=== PATIENT | female | born 1950 | race Caucasian/White ===

== ENCOUNTER → 2017-06-09 | Outpatient (CLI) | payer MEDICARE, OTHER ==
--- NOTE | 2017-06-10 08:33 | MM ---
Reason for exam: screening (asymptomatic). Last mammogram was performed 1 year and 4 months ago. History: Patient is postmenopausal and is nulliparous. Family history of breast cancer in aunt at age 60. Took estrogen for 9 months beginning at age 54. Took progesterone for 9 months beginning at age 54. Physical Findings: A clinical breast exam by your physician is recommended on an annual basis and results should be correlated with mammographic findings. MG 3D Screening Mammo W/Cad Bilateral CC and MLO view(s) were taken. Prior study comparison: February 01, 2016, bilateral MG 3d screening mammo w/cad. January 22, 2015, bilateral MG 3d screening mammo w/cad. The breast tissue is heterogeneously dense. This may lower the sensitivity of mammography. Benign calcifications bilaterally. No significant changes when compared with prior studies. ASSESSMENT: Benign, BI-RAD 2 RECOMMENDATION: Routine screening mammogram of both breasts in 1 year.
== END | disposition home or self-care (01) ==
LOC: RADMAMWWP 13:44
PROVIDERS: ATTEND Family Medicine
DX: Z12.31 Encounter for screening mammogram for malignant neoplasm of breast (principal)
CPT/HCPCS: 77063; 77067

== ENCOUNTER → 2018-09-02 | Outpatient (CLI) | payer MEDICARE, OTHER ==
--- NOTE | 2018-09-03 10:54 | MM ---
Reason for exam: screening (asymptomatic). Last mammogram was performed 1 year and 3 months ago. History: Patient is postmenopausal and is nulliparous. Family history of breast cancer in aunt at age 60. Took estrogen for 9 months beginning at age 54. Took progesterone for 9 months beginning at age 54. Physical Findings: A clinical breast exam by your physician is recommended on an annual basis and results should be correlated with mammographic findings. MG 3D Screening Mammo W/Cad Bilateral CC and MLO view(s) were taken. Prior study comparison: June 09, 2017, bilateral MG 3d screening mammo w/cad. February 01, 2016, bilateral MG 3d screening mammo w/cad. There are scattered fibroglandular densities. No significant changes when compared with prior studies. ASSESSMENT: Benign, BI-RAD 2 RECOMMENDATION: Routine screening mammogram of both breasts in 1 year.
== END | disposition home or self-care (01) ==
LOC: RADMAMWWP 11:30
PROVIDERS: ATTEND Family Medicine
DX: Z12.31 Encounter for screening mammogram for malignant neoplasm of breast (principal)
CPT/HCPCS: 77063; 77067

== ENCOUNTER 2018-10-01 11:30 | Emergency (ER) | payer MEDICARE, OTHER ==
[2018-10-01 11:40] VITALS: BP 137/76; PULSE 70; RESP 16; TEMP 97.8
[2018-10-01] MEDS ORDERED: SODIUM CHLORIDE 0.9% 1,000 ML IV STA (11:48)
[2018-10-01] MEDS ORDERED: methylPREDNISolone SOD SUCCI 125 MG/2 ML VIAL IV STA (12:21)
[2018-10-01] MEDS ORDERED: FAMOTIDINE 20 MG/2 ML VIAL IV STA (12:21)
[2018-10-01] MEDS ORDERED: diphenhydrAMINE 50 MG/ML 1 ML VIAL IVP STA (12:21)
[2018-10-01 12:30] LABS: Basophils # (A) 0.1 k/uL (0-0.2); Basophils % (A) 1 %; Eosinophils # (A) 0.1 k/uL (0-0.7); Eosinophils % (A) 1 %; HGB 15.1 gm/dL (11.4-16.0); Lymphocytes % (A) 17 %; MCV 96.8 fL (80.0-100.0); Mean Platelet Volume 8.4; Monocytes # (A) 0.5 k/uL (0-1.0); Monocytes % (A) 4 %; Neutrophils # (A) 9.2 k/uL (1.3-7.7); Neutrophils % (A) 77 %; Platelet Count 261 k/uL (150-450); RBC 4.86 m/uL (3.80-5.40); WBC 12.1 k/uL (3.8-10.6)
[2018-10-01 12:40] LABS: ALT 25 U/L (9-52); AST 29 U/L (14-36); African American GFR (CKD) >90 (>60 ml/min/1.73 sqM); Albumin 4.2 g/dL (3.5-5.0); Alkaline Phosphatase 59 U/L (38-126); Anion Gap 8 mmol/L; Blood Urea Nitrogen 12 mg/dL (7-17); Calcium 9.1 mg/dL (8.4-10.2); Carbon Dioxide 28 mmol/L (22-30); Chloride 104 mmol/L (98-107); Glucose 88 mg/dL (74-99); Potassium 4.4 mmol/L (3.5-5.1); Sodium 140 mmol/L (137-145); Total Bilirubin 1.4 mg/dL (0.2-1.3)
--- NOTE | 2018-10-01 13:38 | ED ---
General Adult HPI - General Chief complaint: Abdominal Pain Stated complaint: appedicitis Time Seen by Provider: 10/01/18 11:47 Source: patient, RN notes reviewed, old records reviewed Mode of arrival: ambulatory Limitations: no limitations - History of Present Illness Initial comments: 68-year-old female patient past history significant for hypertension h yperlipidemia presents to ED with abdominal pain. Patient was evaluated by her primary care provider who recommended presented to ED for CAT scan. She reports the pain began this morning at approximately 6 AM, began in her right lower quadrant, patient has generalized abdominal pain did not worsen her left lower quadrant. Denies previous abdominal surgeries. Denies any chest pain or shortness of breath. Reports some nausea without emesis. Systemic: Pt denies fatigue, fever/chills, rash. Pt denies weakness, night sweats, weight loss. Neuro: Pt denies headache, visual disturbances, syncope or pre-syncope. HEENT: Pt denies ocular discharge or irritation, otalgia, rhinorrhea, pharyngitis or notable lymphadenopathy. Cardiopulmonary: Pt denies chest pain, SOB, heart palpitations, dyspnea on exertion. Abdominal/GI: Pt denies /v/d. : Pt denies dysuria, burning w/ urination, frequency/urgency. Denies new onset urinary or bowel incontinence. MSK: Pt denies myalgia, loss of strength or function in extremities. Neuro: Pt denies new onset weakness, paresthesias. - Related Data Allergies Allergy/AdvReac Type Severity Reaction Status Date / Time shellfish derived [Shellfish] Allergy Rash/Hives Verified 10/01/18 11:37 Review of Systems ROS Statement: Those systems with pertinent positive or pertinent negative responses have been documented in the HPI. ROS Other: All systems not noted in ROS Statement are negative. Past Medical History Past Medical History: Hyperlipidemia, Hypertension History of Any Multi-Drug Resistant Organisms: None Reported Past Surgical History: No Surgical Hx Reported Past Psychological History: No Psychological Hx Reported Smoking Status: Never smoker Past Alcohol Use History: Occasional Past Drug Use History: None Reported General Exam - General Exam Comments Initial Comments: Constitutional: NAD, AOX3, Pt has pleasant affect. HEENT: NC/AT, trachea midline, neck supple, no lymphadenopathy. Posterior pharynx non erythematous, without exudates. External ears appear normal, without discharge. Mucous membranes moist. Eyes PERRLA, EOM intact. There is no scleral icterus. No pallor noted. Cardiopulmonary: RRR, no murmurs, rubs or gallops, no JVD noted. Lungs CTAB in anterior and posterior finney. No peripheral edema. Abdominal exam: Abdomen soft and mildly-distended. Abdomen mildly tender to palpation left lower quadrant, no other areas of abdominal tenderness, no guarding or rigidity.. Bowel sounds active in LLQ. No hepatosplenomegaly. No ecchymosis Neuro: CN II-XII grossly intact. No nuchal rigidity. No raccon eyes, no gunter sign, no hemotympanum. No cervical spinal tenderness. MSK: No posterior calf tenderness bilaterally, homans sign negative bilaterally. Posterior tibialis and radial pulse +2 bilaterally. Sensation intact in upper and lower extremities. Full active ROM in upper and lower extremities, 5/5 stregnth. Limitations: no limitations Course Vital Signs 10/01/18 11:37 Temperature 97.8 F Pulse Rate 70 Respiratory 16 Rate Blood Pressure 137/76 O2 Sat by Pulse 99 Oximetry Medical Decision Making - Medical Decision Making 68-year-old female patient past history significant for hypertension hyperlipidemia presents to ED with abdominal pain. Patient was evaluated by her primary care provider who recommended presented to ED for CAT scan. She reports the pain began this morning at approximately 6 AM, began in her right lower quadrant, patient has generalized abdominal pain did not worsen her left lower quadrant. Denies previous abdominal surgeries. Denies any chest pain or shortness of breath. Reports some nausea without emesis. Patient vital signs stable, afebrile. Physical exam displayed: Abdomen soft and mildly-distended. Abdomen mildly tender to palpation left lower quadrant, no other areas of abdominal tenderness, no guarding or rigidity.. Bowel sounds active in LLQ. No hepatosplenomegaly. Laboratory investigations displayed mild leukocytosis, otherwise noncompressive. CT displayed a large cystic structure and middle of abdomen with corresponding mass effect and surrounding structures. Ascites. Case was discussed and pt was examined with both Dr. Bergman as well as Dr. Sam. Patient will be discharged and have close outpatient follow-up on Thursday with Dr. Sam. - Lab Data Result diagrams: 10/01/18 12:10 10/01/18 12:10 Lab Results 08/16/19 08/16/19 08/16/19 Range/Units 12:10 12:10 12:10 WBC 12.1 H (3.8-10.6) k/uL RBC 4.86 (3.80-5.40) m/uL Hgb 15.1 (11.4-16.0) gm/dL Hct 47.0 H (34.0-46.0) % MCV 96.8 (80.0-100.0) fL MCH 31.0 (25.0-35.0) pg MCHC 32.0 (31.0-37.0) g/dL RDW 15.0 (11.5-15.5) % Plt Count 261 (150-450) k/uL Neutrophils % 77 % Lymphocytes % 17 % Monocytes % 4 % Eosinophils % 1 % Basophils % 1 % Neutrophils # 9.2 H (1.3-7.7) k/uL Lymphocytes # 2.0 (1.0-4.8) k/uL Monocytes # 0.5 (0-1.0) k/uL Eosinophils # 0.1 (0-0.7) k/uL Basophils # 0.1 (0-0.2) k/uL Sodium 140 (137-145) mmol/L Potassium 4.4 (3.5-5.1) mmol/L Chloride 104 (98-107) mmol/L Carbon Dioxide 28 (22-30) mmol/L Anion Gap 8 mmol/L BUN 12 (7-17) mg/dL Creatinine 0.62 (0.52-1.04) mg/dL Est GFR (CKD-EPI)AfAm >90 (>60 ml/min/1.73 sqM) Est GFR (CKD-EPI)NonAf >90 (>60 ml/min/1.73 sqM) Glucose 88 (74-99) mg/dL Plasma Lactic Acid [place] 0.9 (0.7-2.0) mmol/L Calcium 9.1 (8.4-10.2) mg/dL Total Bilirubin 1.4 H (0.2-1.3) mg/dL AST 29 (14-36) U/L ALT 25 (9-52) U/L Alkaline Phosphatase 59 (38-126) U/L Total Protein 7.0 (6.3-8.2) g/dL Albumin 4.2 (3.5-5.0) g/dL Lipase 63 (23-300) U/L Urine Color Urine Appearance (Clear) Urine pH (5.0-8.0) Ur Specific [place] (1.001-1.035) Urine Protein (Negative) Urine Glucose (UA) (Negative) Urine Ketones (Negative) Urine Blood (Negative) Urine Nitrite (Negative) Urine Bilirubin (Negative) Urine Urobilinogen (<2.0) mg/dL Ur Leukocyte Esterase (Negative) 10/01/18 Range/Units 14:40 WBC (3.8-10.6) k/uL RBC (3.80-5.40) m/uL Hgb (11.4-16.0) gm/dL Hct (34.0-46.0) % MCV (80.0-100.0) fL MCH (25.0-35.0) pg MCHC (31.0-37.0) g/dL RDW (11.5-15.5) % Plt Count (150-450) k/uL Neutrophils % % Lymphocytes % % Monocytes % % Eosinophils % % Basophils % % Neutrophils # (1.3-7.7) k/uL Lymphocytes # (1.0-4.8) k/uL Monocytes # (0-1.0) k/uL Eosinophils # (0-0.7) k/uL Basophils # (0-0.2) k/uL Sodium (137-145) mmol/L Potassium (3.5-5.1) mmol/L Chloride (98-107) mmol/L Carbon Dioxide (22-30) mmol/L Anion Gap mmol/L BUN (7-17) mg/dL Creatinine (0.52-1.04) mg/dL Est GFR (CKD-EPI)AfAm (>60 ml/min/1.73 sqM) Est GFR (CKD-EPI)NonAf (>60 ml/min/1.73 sqM) Glucose (74-99) mg/dL Plasma Lactic Acid [place] (0.7-2.0) mmol/L Calcium (8.4-10.2) mg/dL Total Bilirubin (0.2-1.3) mg/dL AST (14-36) U/L ALT (9-52) U/L Alkaline Phosphatase (38-126) U/L Total Protein (6.3-8.2) g/dL Albumin (3.5-5.0) g/dL Lipase (23-300) U/L Urine Color Light Yellow Urine Appearance Clear (Clear) Urine pH 7.0 (5.0-8.0) Ur Specific [place] 1.028 (1.001-1.035) Urine Protein Negative (Negative) Urine Glucose (UA) Negative (Negative) Urine Ketones 1+ H (Negative) Urine Blood Negative (Negative) Urine Nitrite Negative (Negative) Urine Bilirubin Negative (Negative) Urine Urobilinogen <2.0 (<2.0) mg/dL Ur Leukocyte Esterase Negative (Negative) Disposition Clinical Impression: Abdominal pain Disposition: HOME SELF-CARE Condition: Stable Instructions (If sedation given, give patient instructions): Abdominal Pain (ED) Additional Instructions: Patient to adhere to previously discussed treatment plan and will take medication(s) as directed. Patient to follow up with PCP in 1-2 days. Patient to return to ED if symptoms do not improve. Follow-up with Dr. Sam on thursday. Return to er if condition worsens in anyway. Is patient prescribed a controlled substance at d/c from ED?: No Referrals: Yu Goodrich MD [Primary Care Provider] - 1-2 days Kristan Sam MD [STAFF PHYSICIAN] - 1-2 days
--- NOTE | 2018-10-01 13:53 | CT ---
EXAMINATION TYPE: CT abdomen pelvis w con DATE OF EXAM: 10/01/2018 COMPARISON: None HISTORY: Abdominal pain CT DLP: 705.9 mGycm Automated exposure control for dose reduction was used. TECHNIQUE: Helical acquisition of images was performed from the lung bases through the pelvis. CONTRAST: Performed without Oral Contrast and with IV Contrast, patient injected with 100 mll mL of Isovue 300. FINDINGS: LUNG BASES: 0.7 cm lingular soft tissue nodule on axial image 12 and coronal image 27. No pleural eff usion. LIVER/GB: No intrahepatic lesion. Gallbladder appears normal. Anterior and superior simple fluid beryl uring 10-20 Hounsfield units. PANCREAS: No significant abnormality is seen. SPLEEN: No intrahepatic lesion. Small amount of perisplenic ascites. ADRENALS: No significant abnormality is seen. KIDNEYS: No significant abnormality is seen. FREE AIR: No free air is visualized. RETROPERITONEAL ADENOPATHY: None visualized REPRODUCTIVE ORGANS: There is a large oval-shaped cystic structure seen in the middle of the abdomen measuring 8.2 x 20.0 x 22.1 cm in AP by transverse by craniocaudad dimension. There is a small amount of hyperattenuation along the right anterolateral aspect on axial image 52. There also appears to be an additional 2 areas of loculation in the left superior and lateral aspect on axial image 36. This structure appears to be arising from the right adnexa. Uterus is posteriorly dislocated with a small calcified fibroid internally. There is a small amount of fluid within the pelvic cul-de-sac. Mass eff ect and compression is seen on the IVC on image 49 causing moderate to severe narrowing. Abdominal as cites is also seen in the right lower quadrant of the abdomen. URINARY BLADDER: No significant abnormality is seen. PELVIC ADENOPATHY: None visualized. OSSEOUS STRUCTURES: No significant abnormality is seen. IMPRESSION: FINDINGS FAVORED TO REPRESENT OVARIAN SEROUS OR MUCINOUS ADENOMA/CARCINOMA. [employer] CONSULTATION IS RE COMMENDED. SEVERE MASS EFFECT UPON THE INFERIOR VENA CAVA AND SURROUNDING VASCULAR STRUCTURES LIKELY CAUSING ADRIENNE OUS CONGESTION AND SMALL AMOUNT OF ABDOMINAL ASCITES. PERIHEPATIC FLUID IS LIKELY RELATED TO ABDOMINA L ASCITES, BUT DIFFERENTIAL WOULD ALSO INCLUDE METASTATIC SCALLOPING. INDETERMINATE LEFT LINGULA NODULE MEASURING 0.7 CM WHICH ALSO MAY RELATED TO METASTASIS.
[2018-10-01 14:49] LABS: Appearance,Urine Clear (Clear); Bilirubin,Urine Negative (Negative); Blood,Urine Negative (Negative); Color,Urine Light Yellow; Glucose,Urine (UA) Negative (Negative); Ketones,Urine 1+ (Negative); Leukocyte Esterase,Urine Negative (Negative); Nitrite,Urine Negative (Negative); Protein,Urine Negative (Negative); Specific Gravity,Urine 1.028 (1.001-1.035); Urobilinogen,Urine <2.0 mg/dL (<2.0)
--- NOTE | 2018-10-01 15:31 | P.OBCN ---
History of Present Illness Consult date: 10/01/18 Requesting physician: Mario Bergman Reason for consult: pelvic mass Chief complaint: Abdominal pain History of present illness: This is a 68-year-old 0 woman who had an episode of severe right lower quadrant pain this morning upon awakening. She was seen by her primary care physician who was concerned about an appendicitis. She was sent to the emergency room for evaluation. The patient's pain had entirely resolved by initial presentation to the emergency room however imaging was obtained. Computed tomography scan of the pelvis shows 8.2 x 20.0 x 22.1 cm abdominal mass possibly emanating from the right adnexa. It is fluid filled with areas of loculation. The uterus appears distinct from this structure. There is a small amount of fluid in the posterior cul-de-sac as well as on the abdominal ascites. Pelvic lymphadenopathy is not commented upon. The patient reports increasing abdominal girth since May. She reports her regular clothes no longer fit around her abdomen however she has been eating less secondary to decreased appetite. She is overall feeling fatigued. She is having some incontinence of urine but denies vaginal bleeding, blood in the urine or bloody stools. She has occasional pain that she likens to "gas pain". No history of prior pregnancies. No history of abnormal Pap smears or other pelvic conditions. Her last mammogram was 1 month ago and was normal. She has been menopausal for approximately 20 years. No recollection of postmenopausal bleeding. Past Medical History Past Medical History: Hyperlipidemia, Hypertension History of Any Multi-Drug Resistant Organisms: None Reported Past Surgical History: No Surgical Hx Reported Past Psychological History: No Psychological Hx Reported Smoking Status: Never smoker Past Alcohol Use History: Occasional Past Drug Use History: None Reported Medications and Allergies Allergies Allergy/AdvReac Type Severity Reaction Status Date / Time shellfish derived [Shellfish] Allergy Rash/Hives Verified 10/01/18 11:37 Exam Vital Signs Temp Pulse Resp BP Pulse Ox 10/01/18 11:37 97.8 F 70 16 137/76 99 Intake and Output 10/01/18 10/01/18 10/01/18 06:59 14:59 22:59 Other: Weight 64.864 kg This is a pleasant, comfortable appearing female. HEENT is on remarkable. Her breathing is unlabored, lungs are clear and the heart is a regular rate and rhythm. Breast exam is deferred. The abdomen is distended and firm with mass extending to approximately 3 cm above the level of the umbilicus. This is nontender. She has no rebound, no guarding and no ascites fluid wave. She has no CVA tenderness. She has no swelling or redness of the lower extremities. She has no active vaginal bleeding. Results Result Diagrams: 10/01/18 12:10 10/01/18 12:10 Abnormal Lab Results - Last 24 Hours (Table) 10/01/18 10/01/18 10/01/18 Range/Units 12:10 12:10 14:40 WBC 12.1 H (3.8-10.6) k/uL Hct 47.0 H (34.0-46.0) % Neutrophils # 9.2 H (1.3-7.7) k/uL Total Bilirubin 1.4 H (0.2-1.3) mg/dL Urine Ketones 1+ H (Negative) CT scan - abdomen: report reviewed, image reviewed CT scan - pelvis: report reviewed, image reviewed Assessment and Plan (1) Pelvic mass Current Visit: Yes Status: Acute Code(s): R19.00 - INTRA-ABD AND PELVIC SWELLING, MASS AND LUMP, UNSP SITE SNOMED Code(s): 39193762 (2) Abdominal pain Current Visit: Yes Status: Acute Code(s): R10.9 - UNSPECIFIED ABDOMINAL PAIN SNOMED Code(s): 27501193 Plan: 68-year-old 0 woman with findings of 22 cm complex pelvic mass. 3 month history of increasing abdominal girth, fatigue and loss of appetite. Findings concerning for possible ovarian malignancy. I have recommended consultation with a [employer] oncologist for surgical diagnosis. Tumor markers are pending. She does not have a surgical abdomen at this time I believe she does not require admission as her pain has resolved. I will follow up with her on a close outpatient basis next week to arrange immediately referred to [employer] oncology. Differential diagnosis includes benign serous or mucinous cystadenoma. All questions are answered. She is recommended to return to the emergency room should she have any ongoing severe abdominal pain or other concerns. Time with Patient: Greater than 30
== END 2018-10-01 15:23 | disposition home or self-care (01) ==
LOC: EC 11:30
DX: R10.31 Right lower quadrant pain (principal); R19.00 Intra-abdominal and pelvic swelling, mass and lump, unspecified site; R10.84 Generalized abdominal pain; R11.0 Nausea; D72.829 Elevated white blood cell count, unspecified; I10 Essential (primary) hypertension; E78.5 Hyperlipidemia, unspecified; Z91.013 Allergy to seafood
CPT/HCPCS: 36415; 80053; 86304; 83605; 83690; 85025; 81003; 74177; 99285; 96374; 96375 ×2; 96361; J1200; J2930; Q9967

== ENCOUNTER → 2020-05-21 | Outpatient (CLI) | payer MEDICARE, OTHER ==
--- NOTE | 2020-05-22 10:53 | MM ---
Reason for exam: screening (asymptomatic). Last mammogram was performed 1 year and 9 months ago. History: Patient is postmenopausal, history of endometrial cancer, and is nulliparous. Family history of breast cancer in aunt at age 60. Took estrogen for 9 months beginning at age 54. Took progesterone for 9 months beginning at age 54. Physical Findings: A clinical breast exam by your physician is recommended on an annual basis and results should be correlated with mammographic findings. MG 3D Screening Mammo W/Cad Bilateral CC and MLO view(s) were taken. Prior study comparison: September 02, 2018, bilateral MG 3d screening mammo w/cad. June 09, 2017, bilateral MG 3d screening mammo w/cad. The breast tissue is heterogeneously dense. This may lower the sensitivity of mammography. Stable benign calcifications. There is no discrete abnormality. No significant changes when compared with prior studies. ASSESSMENT: Benign, BI-RAD 2 RECOMMENDATION: Routine screening mammogram of both breasts in 1 year.
== END | disposition home or self-care (01) ==
LOC: RADMAMWWP 10:10
PROVIDERS: ATTEND Family Medicine
DX: Z12.31 Encounter for screening mammogram for malignant neoplasm of breast (principal); Z78.0 Asymptomatic menopausal state; Z80.3 Family history of malignant neoplasm of breast
CPT/HCPCS: 77063; 77067